=== PATIENT | male | born 1975 | race Caucasian/White ===

== ENCOUNTER → 2017-10-13 | Outpatient (CLI) | payer BC ==
[~2017-10-13] MED LIST: GADAVIST IV PRN; IBUP-1050 PO
--- NOTE | 2017-10-13 09:36 | DIAGNOSTIC IMAGING REPORT ---
BRAIN COMBO FOR IAC CLINICAL HISTORY: H90.42 Left asymmetrical SNHLPatient has left-sided tinnitus. P tinnitus.. Hearing Loss. TECHNIQUE: Multiaxial MRI acquisition COMPARISON STUDY: None FINDINGS: Diffusion-weighted images are negative for an acute ischemic insult. Signal characteristics of the cerebellar as well as cerebral hemispheres are unremarkable. Signal characteristics of the internal auditory canals are normal. Sella and parasellar regions are unremarkable. There is no evidence for abnormal postcontrast enhancement. IMPRESSION: Normal study The above report was generated using voice recognition software. It may contain grammatical, syntax or spelling errors. Electronically signed by: Jhony Clayton M.D. 10/13/2017 9:35 AM Dictated Date/Time: 10/13/2017 9:30 AM
== END | disposition home or self-care (01) ==
LOC: C.MRIBC 08:25
PROVIDERS: ATTEND Physician Assistant
DX: H90.42 Sensorineural hearing loss, unilateral, left ear, with unrestricted hearing on the contralateral side (principal)

== ENCOUNTER → 2017-10-16 | Outpatient (CLI) | payer BC ==
[~2017-10-16] MED LIST changes: -GADAVIST IV PRN
== END | disposition home or self-care (01) ==
LOC: C.LAB 09:35
PROVIDERS: ATTEND Nutritionist
DX: R53.83 Other fatigue (principal)